=== PATIENT | male | born 1930 | race Caucasian/White ===

== ENCOUNTER 2016-09-26 13:00 | Outpatient (RCR) | payer MEDICARE ==
--- NOTE | 2016-08-04 10:31 | PT/OT/ST INITIAL EVALUATION ---
Department of Health and Human Services Form Approved Health Care Financing Administration OMB No. [id number] PLAN OF CARE/ASSESSMENT FOR OUTPATIENT REHABILITATION (Complete for Initial Claims Only) 1. LAST NAME Jaspal FIRST NAME Ike Woodruff 2. ACC # [id number] [facility]. [id number] 4. PROVIDER NO. [id number] 5. TYPE: X PT 6. PRIOR THERAPY (Same condition) None 7. PRIMARY DX Impairment of balance 8. SECONDARY DX Unsteadiness with gait and frequent falls 9. ONSET DATE 07/26/2016 10. REFERRAL DATE 07/29/2016 11. SOC. DATE/TIME 07/30/2016 14:00 12. PRIOR LEVEL OF FUNCTION; PERTINENT HISTORY (Prior therapy results, reason for referral.) S: The patient was referred to physical therapy by Dr. Gifford with the diagnosis of impairment of balance. The patient presents to physical therapy with his . The patient does suffer from dementia and is a poor historian, so his is able to provide more detailed information. She reports that his balance and walking has declined over the last couple of years. He has been having more frequent falls, most recently 07/26/2016 when he fell backwards reaching for a chair in their home. The patient's 's goal is for the patient to be able to walk better. He does ambulate with a 4-wheeled walker when outside of the home. The patient's states that he is unsteady when stepping up and down from curbs. She notes that when he falls, he usually falls backwards. Overall health rating: Rates overall health as poor. Activity level: Low Current pain rating is zero. Past medical history includes ND in 1993, heart stents 2003, stroke 2004, and pacemaker 2010. The patient is also diabetic. He is retired and lives in a one-level home with his in [place] [facility] [place]. 13. INITIAL ASSESSMENT/SAFETY PRECAUTIONS/MEDICAL COMPLICATIONS (Level of function at start of care. Be specific, use objective measures, list problems.) O: APPEARANCE: The patient is a healthy looking 86-year-old male. He ambulates into therapy without assistive device. He ambulates with a wide base of support. He demonstrates moderate posterior sway with gait. When ambulating he does demonstrate some shuffling and out-toeing. This seems to increase to staggering when he becomes fatigued. In sitting, the patient demonstrates also a posterior sway and increased movement in tapping of his ankles when sitting. When the patient was walking sideways, he did demonstrate some difficulty, especially when going to the left. Performed 6 minute walking test with the patient. He was able to ambulate 576 feet with one rest. Also performed Tinetti balance assessment with the patient. He scored 15 out of 16 on the balance assessment and 8 out of 12 on the gait assessment. This puts him at a 23/28, which is a moderate risk for falls. RANGE OF MOTION/FLEXIBILITY: Cervical flexion and extension normal limits. Right rotation 90%, left rotation 75%. Shoulder range of motion normal limits. Lower extremity range of motion normal limits, however, the patient did demonstrate some tightness in his hip flexors. STRENGTH: Upper extremity strength was 5/5 manual muscle test. Lower extremity strength hip abductors 5/5 manual muscle test, hip flexors 4/5 manual muscle test, knee extension and knee flexion 5/5 manual muscle test, dorsiflexion of the ankles 5/5 manual muscle test. TODAY'S TREATMENT: Included initial evaluation followed by performing upper level gait and balance activities with the patient. The patient is hard of hearing and requires increased communication and verbal cueing. 14. INITIAL POC: (Specify procedures, modalities, short and skilled nursing goals) A: The patient demonstrates some limitations with gait and balance, especially when he becomes fatigued. GOALS: 1. The patient to demonstrate compliance with home exercise program in 3 weeks. 2. The patient to demonstrate improved Tinetti balance assessment score by 3 points in 4 weeks. 3. The patient to improve 6-minute walk test by 100 feet in 6 weeks. 4. The patient to demonstrate improved balance and stability with gait when performing normal daily activities in 6 weeks. PLAN: The patient will be seen times a week over the next 6 weeks. Plan on progressing the patient with range of motion, flexibility, stabilization, and strengthening, balance and gait activities. 15. FUNCTIONAL LEVEL (End of claim period) 16. PHYSICIAN SIGNATURE ? ON FILE OR ENTER HERE: 17. DATE: I certify the need for these services furnished under this plan of care and if for partial hospitalization. 18. CERTIFICATION FROM THROUGH FORM [id number]
[~2016-09-26 13:00] MED LIST: AMOX500C5 PO; ASPI-860 PO; ATN25T PO; BENA20TA2 PO; BNZT1T PO; CHOL200025 PO; CLOP75TA28 PO; CLOP75TA3 PO; CYAN100088 PO; CYAN1TAB26 PO; DONE10TA5 PO; FOLI0.4T2 PO; FOLI0.8T PO; FOLI20CA PO; GLIM1TAB PO; GLMP1T PO; HYDR-3811 PO; METF500T4 PO; PRAS10TA6 PO; RISP0.5T3 PO; SERT50TA2 PO; SMV20T PO
== END 2016-09-29 16:09 | disposition home or self-care (01) ==
LOC: PT 13:00
PROVIDERS: ATTEND Internal Medicine
DX: R26.89 Other abnormalities of gait and mobility (principal)
CPT/HCPCS: 97110; 97112; 97161; G8978; G8979